=== PATIENT | female | born 1990 | race Caucasian/White ===

== ENCOUNTER 2017-01-27 11:45 | Emergency (ER) | payer MEDICAID ==
--- NOTE | 2017-01-28 15:19 | ER ---
ADMIT: 01/27/2017 RM/LOC: ER [facility] MR#: [id number] [id number] [place], [place] [id number] SHYLA MEANS [address] [place] [address] Emergency Room Report SEX: F AGE: 26 : 1990 DATE: 01/27/2017 TIME: 1145 hours. Please refer to my T-sheet for complete H and P. Briefly, the patient is a 26-year-old, who comes with left thigh rash, it has been there for a few days. She has been on Keflex, it is not helping. She has had one before in the past and it has drained. This one has not drained. PHYSICAL EXAMINATION: VITAL SIGNS: Stable. She is afebrile. EXTREMITIES: Her left thigh has a cutaneous abscess. There is an indurated area near it, that is an old one, that looks like it is healed. This one is slightly fluctuant. EMERGENCY DEPARTMENT COURSE: I gave the choice of anesthetizing and a using a scalpel or just using an 18 to open it up. She elected the 18-gauge needle. We prepped with Betadine. I used an 18-gauge to open the top, expression of a generous amount of purulent fluid. She tolerated it well. She was ready for discharge. ASSESSMENT: Left thigh cutaneous abscess, highly suspicious for methicillin- resistant Staphylococcus aureus. PLAN: Keep clean. Warm moist compresses. Follow up with Geovanna Holguin APRN, later this week. Bactrim DS b.i.d. for 7 days. Matteo Yanez MD/ anabella JOB #: [id number] CC: Matteo Yanez MD, Attending Physician Geovanna J. Ezio, Family Physician
== END 2017-01-27 12:14 | disposition home or self-care (01) ==
LOC: ER 11:45
PROC: 0H9JXZZ Drainage of Left Upper Leg Skin, External Approach (ICD-10-PCS; principal; 2017-01-27)
DX: L02.416 Cutaneous abscess of left lower limb (principal); F17.210 Nicotine dependence, cigarettes, uncomplicated; F31.9 Bipolar disorder, unspecified; Z98.890 Other specified postprocedural states; Z79.899 Other long term (current) drug therapy